=== PATIENT | male | born 1970 | race Two or more races ===

== ENCOUNTER 2019-11-19 07:52 | Emergency (ER) | payer MEDICAID ==
[~2019-11-19] VITALS: Ht 175.3 cm; Wt 80.7 kg
[2019-11-19 07:56] VITALS: BP 101/56; Ht 175.3 cm; Wt 80.7 kg
== END 2019-11-19 09:08 | disposition home or self-care (01) ==
LOC: ED 07:52
DX: J20.9 Acute bronchitis, unspecified (principal)
CPT/HCPCS: Q0092

== ENCOUNTER 2019-11-27 19:00 | Emergency (ER) | payer MEDICAID ==
[~2019-11-27] VITALS: Ht 172.7 cm; Wt 82.1 kg
[2019-11-27 19:14] VITALS: Ht 172.7 cm; Wt 82.1 kg
[2019-11-27 22:16] VITALS: BP 129/85
== END 2019-11-27 22:16 | disposition home or self-care (01) ==
LOC: ED 19:00
DX: J06.9 Acute upper respiratory infection, unspecified (principal)